=== PATIENT | female | born 1980 | race Two or more races ===

== ENCOUNTER 2019-11-17 12:36 | Outpatient (CLI) | payer OTHER | END 2019-11-17 15:29 | disposition home or self-care (01) | LOC: RAD 12:36 | DX: M79.644 Pain in right finger(s) (principal) ==

== ENCOUNTER 2019-11-24 13:27 | Outpatient (CLI) | payer OTHER | END 2019-11-24 15:44 | disposition home or self-care (01) | LOC: RAD 13:27 | DX: M67.442 Ganglion, left hand (principal) ==